=== PATIENT | male | born 1980 | race Caucasian/White ===

== ENCOUNTER 2024-11-06 15:03 | Emergency (ER) | payer BC, OTHER ==
[~2024-11-06] VITALS: Ht 172.7 cm; Wt 97.1 kg
[2024-11-06] MEDS ORDERED: CEPH-570 PO (17:21)
[2024-11-06] MEDS ORDERED: SULF1TAB48 PO (17:21)
[2024-11-06 17:35] VITALS: BP 128/78; TEMP 98.1; O2SAT 97
== END 2024-11-06 17:35 | disposition home or self-care (01) ==
LOC: ER 15:15
DX: L03.115 Cellulitis of right lower limb (principal); E11.9 Type 2 diabetes mellitus without complications
CPT/HCPCS: 93971-TC

== ENCOUNTER 2024-11-28 18:12 | Emergency (ER) | payer OTHER ==
[~2024-11-28] VITALS: Ht 172.7 cm; Wt 99.8 kg
[~2024-11-28 18:12] MED LIST: CEPH-570 PO; SULF1TAB48 PO
[2024-11-28] MEDS: IV NS 0.9% 1,000 ML BAG IV ONE (18:51)
[2024-11-28 18:54] LABS: BASOPHILS # (AUTO) 0.1 K/uL (0.0-0.2); BASOPHILS % (AUTO) 0.7 % (0.0-2.0); EOSINOPHILS # (AUTO) 0.1 K/uL (0.0-0.7); EOSINOPHILS % (AUTO) 0.6 % (0.0-6.0); HEMATOCRIT 46 % (39-51); LYMPHOCYTES # (AUTO) 3.1 K/uL (0.8-4.8); LYMPHOCYTES % (AUTO) 32.5 % (20.0-44.0); MEAN CORPUSCULAR HEMOGLOBIN 30 PG (26.0-33.0); MEAN CORPUSCULAR HGB CONC 35 g/dl (31.0-36.0); MEAN CORPUSCULAR VOLUME 87 fL (80-96); MONOCYTES # (AUTO) 0.6 K/uL (0.1-1.30); MONOCYTES % (AUTO) 6.7 % (2.0-12.0); NEUTROPHILS # (AUTO) 5.7 K/uL (1.8-8.9); NEUTROPHILS % (AUTO) 59.5 % (43.0-81.0); PLATELET COUNT (AUTO) 397 K/uL (150-450); RED BLOOD CELL COUNT(AUTO) 5.34 MIL/uL (4.5-6.0); WHITE BLOOD COUNT (AUTO) 9.7 K/uL (4.3-11.0)
[2024-11-28 19:04] LABS: CALCIUM, SERUM 9.9 mg/dL (8.5-10.1); CARBON DIOXIDE 26 mmol/L (21-32); CHLORIDE 98 mmol/L (98-107); CREATININE 1.3 mg/dL (0.6-1.3); GLUCOSE 341 mg/dL (74-106); POTASSIUM 3.7 mmol/L (3.5-5.1); SODIUM SERUM 135 mmol/L (136-145); UREA NITROGEN, BLOOD 18 mg/dL (7-18)
[2024-11-28 19:07] LABS: ACETONE, SERUM NEGATIVE (NEGATIVE)
[2024-11-28] MEDS ORDERED: METF-440 PO (20:19)
[2024-11-28 20:26] LABS: APPEARANCE,URINE CLEAR (CLEAR); BILIRUBIN,URINE Negative (NEGATIVE); BLOOD, URINE Negative Ery/uL (NEGATIVE); COLOR,URINE YELLOW (YELLOW); KETONES,URINE 15 mg/dL (NEGATIVE); LEUKOCYTE ESTERASE ,URINE Negative (NEGATIVE); PROTEIN,URINE Trace mg/dl (NEGATIVE); UGLUCOSE 500 MG/DL mg/dL (NEGATIVE); UROBILINOGEN,URINE 0.2 EU/dL (0.2)
[2024-11-28 20:31] LABS: NITRITE, URINE NEGATIVE (NEGATIVE)
[2024-11-28 20:31] LABS: SITE, VBG VBG - N/A; VBG COHb 0.6 % (0.5-1.5); VBG MetHb 0.1 % (0.5-1.5); VBG O2Hb 40.2 % (0-79); VBG OXYGEN SATURATION 40.5 % (60.0-85.0); VBG PH 7.368 (7.320-7.430); VBG PO2 22.8 mmHg (23.0-48.0); VBG TOTAL HEMOGLOBIN 15.5 G/dL (13.5-17.5)
[2024-11-28 20:32] VITALS: BP 135/89; TEMP 98; O2SAT 98
[2024-11-28 20:59] LABS: ADD URINE CULTURE NO; BACTERIA,URINE Rare /HPF (None Seen); MUCUS,URINE Moderate /LPF (None Seen); RBC,URINE 0-2 /HPF (0-2); SQUAMOUS EPITHELIAL CELL,UR None Seen /HPF (None Seen); WBC,URINE 0-2 /HPF (0-3)
== END 2024-11-28 20:33 | disposition home or self-care (01) ==
LOC: ER 18:16
DX: E11.65 Type 2 diabetes mellitus with hyperglycemia (principal); Z79.84 Long term (current) use of oral hypoglycemic drugs; Z88.1 Allergy status to other antibiotic agents; Z79.899 Other long term (current) drug therapy
CPT/HCPCS: 99283; 96360; 82803 ×2; 85025; 80048; 82010; 83036; 81001; 36415; 82962; J7030

== ENCOUNTER 2025-01-18 17:10 | Emergency (ER) | payer OTHER ==
[~2025-01-18] VITALS: Ht 172.7 cm; Wt 93.0 kg
[~2025-01-18 17:10] MED LIST changes: +METF-440 PO
[2025-01-18 17:47] VITALS: BP 145/103; TEMP 98.1; O2SAT 99
[2025-01-18] MEDS: BACI/NEOM/POLY B OINT PKT 1 UDPKT PACKET TP ONE (18:00)
[2025-01-18] MEDS ORDERED: ACETAMINOPHEN ES 500 MG TABLET ONE (18:21)
[2025-01-18] MEDS ORDERED: IBUPROFEN 600 MG TABLET ONE (18:22)
[2025-01-18] MEDS: IBUPROFEN 600 MG TABLET PO ONE (18:24)
[2025-01-18] MEDS: ACETAMINOPHEN ES 500 MG TABLET PO ONE (18:25)
[2025-01-18] MEDS ORDERED: LIDOCAINE 1%-EPI 1:100,000 20 ML VIAL ONE (18:26)
[2025-01-18] MEDS: LIDOCAINE 1%-EPI 1:100,000 20 ML VIAL TP ONE (18:35)
[2025-01-18] MEDS ORDERED: SULF1TAB48 PO (18:45)
[2025-01-18] MEDS ORDERED: CEPH-570 PO (18:45)
[2025-01-18] MEDS ORDERED: TDAP [DIPH/PERTUSSIS/TET] 0.5 ML VIAL IM ONE (20:06)
[2025-01-18] MEDS: TDAP [DIPH/PERTUSSIS/TET] 0.5 ML VIAL IM ONE (20:09)
== END 2025-01-18 19:19 | disposition home or self-care (01) ==
LOC: ER 17:13
DX: L02.414 Cutaneous abscess of left upper limb (principal); L03.114 Cellulitis of left upper limb; E11.9 Type 2 diabetes mellitus without complications; Z79.84 Long term (current) use of oral hypoglycemic drugs; Z88.1 Allergy status to other antibiotic agents; Z86.59 Personal history of other mental and behavioral disorders
CPT/HCPCS: 99284; 10160; 90471; 90715; J3490